=== PATIENT | female | born 1995 | race Caucasian/White ===

== ENCOUNTER 2018-11-25 13:38 | Emergency (ER) | payer OTHER ==
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
[2018-11-25 15:27] VITALS: BP 124/74
== END 2018-11-25 15:27 | disposition home or self-care (01) ==
LOC: ER 13:38
DX: S29.012A Strain of muscle and tendon of back wall of thorax, initial encounter (principal); R51 Headache; M54.2 Cervicalgia; V49.60XA Unspecified car occupant injured in collision with unspecified motor vehicles in traffic accident, initial encounter